=== PATIENT | male | born 1970 | race Caucasian/White ===

== ENCOUNTER 2019-10-23 11:14 | Inpatient (IN) | payer OTHER, SELFPAY ==
--- NOTE | 2019-10-23 11:40 | RAD ---
EXAM: Single view of the chest HISTORY: Chest pain COMPARISON: 10/02/2019 FINDINGS: Single view of the chest shows a normal sized cardiomediastinal silhouette. There is no eliezer dence of consolidation, mass, or pleural effusion. The bones are unremarkable. IMPRESSION: No evidence of acute cardiopulmonary disease
[2019-10-23 11:49] LABS: INR-International Normal Ratio 1.3; PTT 30.4 sec (22.9-36.1); Prothrombin Time 15.9 sec (12.0-14.7)
[2019-10-23 11:52] LABS: Hemoglobin 14.3 g/dL (14.0-18.0); Mean Corpuscular HGB CONC 31.7 g/dL (32.0-36.0); Platelet Count 244 thou/uL (130-400); RBC Distribution Width 14.1 % (11.5-14.5); Red Blood Cell (RBC) Count 4.32 mill/uL (4.70-6.10)
[2019-10-23 12:10] LABS: Band 5 % (5-11); Eosinophils 1 % (0-10); Lymphocytes 10 % (21-51); MDiff Complete? YES; Macrocytosis SLIGHT = 6-15 cells (100X) (0-5/hpf); Monocytes 2 % (0-10); Neutrophil 82 % (42-75); Platelet Morphology Comment Appears Adequate
[2019-10-23 12:16] LABS: ALT (SGPT) 53 U/L (8-55); AST (SGOT) 136 U/L (5-34); Albumin 2.5 g/dL (3.5-5.0); Alkaline Phosphatase 404 U/L (40-110); Anion Gap 19 mmol/L (10-20); BUN (Urea Nitrogen) 6 mg/dL (8.9-20.6); CK (CPK) 20 U/L (30-200); Calc. Creatinine Clearance 0 mL/min (70-130); Calcium 8.1 mg/dL (7.8-10.44); Carbon Dioxide 26 mmol/L (22-29); Chloride 84 mmol/L (98-107); Estimated GFR-MDRD Greater than 90; Globulin 3.3 g/dL (2.4-3.5); Glucose 94 mg/dL (70-105); Potassium 3.6 mmol/L (3.5-5.1); Protein, Total 5.8 g/dL (6.0-8.3); Sodium 125 mmol/L (136-145)
[2019-10-23] MEDS ORDERED: Cefepime 2 GM VIAL ONE (12:20)
[2019-10-23] MEDS ORDERED: Sodium Chloride 0.9% 100 ML ONE (12:20)
[2019-10-23 12:24] LABS: Acetaminophen Less than 6.0 mcg/mL (10.0-30.0); Alcohol Less than 10 mg/dL (Less than 10); Salicylate Less than 8.0 mg/dL (15.0-30.0)
[2019-10-23] MEDS ORDERED: Vancomycin 1 GM/200 ML BAG ONE (12:42)
[2019-10-23 13:27] LABS: Bilirubin 4+ (Negative); Blood, Urine 1+ (Negative); Clarity Turbid (Clear); Glucose, Urine (Dipstick) Normal (Negative); Ketone, Urine 60 mg/dL (Negative); Leukocyte Negative Leu/uL (Negative); Nitrite Negative (Negative); Protein, Urine (Dipstick) 50 mg/dL (Neg-Trace); Specific Gravity, Urine 1.026 (1.002-1.036); Urobilinogen Greater than 12 mg/dL (Less than 2)
[2019-10-23 13:39] LABS: Amphetamine Not Detected (NotDetected); Barbiturates Screen Not Detected (NotDetected); Benzodiazepine Screen Detected (NotDetected); Cocaine Metabolite Screen Not Detected (NotDetected); Medtox Control Line Valid? VALID (VALID); Medtox Reader # READER 1; Methadone Not Detected (NotDetected); Methamphetamine Not Detected (NotDetected); Opiate Screen Not Detected (NotDetected); Oxycodone Screen Not Detected (NotDetected); Phencyclidine (PCP) Not Detected (NotDetected); THC/Cannabinoid Screen Not Detected (NotDetected); Tricyclic Screen Not Detected (NotDetected)
[2019-10-23 13:40] LABS: Bacteria/HPF None Seen HPF (None Seen); Mucous/LPF 2+ LPF (<2+)
[2019-10-23 13:41] LABS: Renal Epithelial 0-3 HPF (None Seen); Squamous Epithelial 0-3 HPF (0-3)
[2019-10-23] MEDS ORDERED: Iopamidol-370 76% 500 ML 1 ML ONE (13:52)
[2019-10-23 14:55] LABS: BF Color Yellow; Body Fluid Source Ascites Body Fluid; Clarity Hazy (Clear)
[2019-10-23 14:56] LABS: BF RBC Count - Manual 107 /cu.mm; BF WBC/Nonhematics Ct.-Manual 164 /cu.mm; Tube # 3
[2019-10-23 15:03] LABS: BF Segmented Neutrophils 49 %; Cell Count Non Hematic 46 %; Lymphocytes 5 %
[2019-10-23] MEDS ORDERED: Senokot S 8.6-50 MG TAB PO PRN (16:29)
[2019-10-23] MEDS ORDERED: Ondansetron ODT 4 MG TAB PO PRN (16:29)
[2019-10-23] MEDS ORDERED: Ondansetron PF 4 MG/2 ML Vial IVP PRN (16:29)
[2019-10-23] MEDS ORDERED: Calcium Carbonate 500 MG ChewTAB PO PRN (16:29)
[2019-10-23] MEDS ORDERED: Lorazepam 1 MG TAB PO PRN (16:35)
[2019-10-23] MEDS ORDERED: traMADol HCl 50 MG TAB PO PRN (16:35)
[2019-10-23] MEDS ORDERED: cloNIDine 0.1 MG TAB PO PRN ×2 (16:35→16:37)
[2019-10-23] MEDS ORDERED: Thiamine 100 MG TAB PO SCH (16:45)
--- NOTE | 2019-10-23 17:10 | HP ---
PRIMARY CARE PHYSICIAN: None. PRIMARY DRY KILN FEEDER: None. CHIEF COMPLAINT: Abdominal distention and pain of 2 weeks duration. HISTORY OF PRESENT ILLNESS: The patient is a 49-year-old male with chronic alcohol abuse, presented to the emergency room with above complaints. Three weeks ago, the patient was admitted to this facility with alcohol withdrawal seizures. His bilirubin at that time was 10.1 with AST of 370, ALT of 88, and alkaline phosphatase of 363. Later on, his mentation improved. He has signed against medical advice next morning. Over the last 2 to 3 weeks, the patient noticed gradual worsening abdominal distention along with pain. The pain is mainly in the lower quadrant. He felt nauseous, however, denies any vomiting. He also noticed worsening yellow discoloration of his skin. He denies any fever or chills. He continues to drink alcohol, however, is trying to slow down. He denies any history of cirrhosis in the past. No diarrhea or previous GI workup reported. In the emergency room, his initial vital signs showed temperature 97.5 with respirations 20, pulse rate of 121 with a blood pressure of 106/83 with O2 saturation 97% on room air. His bilirubin this time was 14.0 with AST of 136, ALT of 53, alkaline phosphatase 404. He underwent paracentesis in the emergency room. He received vancomycin and cefepime along with IV fluid in the emergency room. PAST MEDICAL HISTORY: 1. Chronic alcohol abuse. 2. Recent hospitalization for alcohol withdrawal seizures. PAST SURGICAL HISTORY: Reviewed with the patient and none. The patient had paracentesis today. CURRENT HOME MEDICATIONS: The patient is currently on multivitamin along with magnesium. FAMILY HISTORY: Negative for GI malignancy. SOCIAL HISTORY: The patient continues to abuse alcohol up to 2 to 3 drinks on a daily basis. He also smokes up to half pack a day. 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 REVIEW OF SYSTEMS: All other review of systems was reviewed and were found negative. PHYSICAL EXAMINATION: VITAL SIGNS: As discussed above. GENERAL: A 49-year-old male in no apparent distress. There are fine generalized tremors noted. HEENT: Head, atraumatic and normocephalic. Sclerae icteric. Moist mucous membranes. No oral lesion. NECK: Supple. No JVD appreciated. No carotid bruit. LUNGS: Show diminished air entry at bilateral bases. HEART: S1, S2 present. Tachycardic. No rubs or gallops. ABDOMEN: Distended, soft, mild tenderness in the lower quadrant. No rebound or guarding. No costovertebral angle tenderness. EXTREMITIES: There is 2 to 3+ edema in bilateral lower extremity. No calf tenderness. SKIN: Jaundiced. LYMPH NODES: No palpable lymph nodes in the neck. PERIPHERAL VASCULAR: Radial pulses palpable bilaterally. MUSCULOSKELETAL: No joint swelling, tenderness. NEUROLOGIC: Grossly nonfocal with fine tremors in the bilateral hands as discussed above. LAB FINDINGS: CBC showed WBC 20, with hemoglobin 14.3, hematocrit 45, platelet count 244. PT of 15.9 with INR 1.3, PTT 30.4. Chemistry showed sodium 125, potassium 3.6, chloride 84, bicarb 26, BUN 6, creatinine 0.71, total bilirubin 14. Urinalysis showed 4 to 6 wbc's without any bacteria. Ascitic fluid showed WBC of 164 with 49% neutrophils. Urine drug screen was positive for benzodiazepines. Plasma alcohol was less than 10. Ascitic fluid Gram stain was negative for bacteria. Chest x-ray by my review was negative for infiltrate. EKG by my review showed sinus tachycardia. IMPRESSION: 1. Volume overload/symptomatic ascites, status post paracentesis. 2. Abnormal LFTs, most likely secondary to alcoholic hepatitis with possible cirrhosis. 3. Hyponatremia secondary to volume overload. 4. Ongoing alcohol abuse. 5. Tobacco dependence. 6. Macrocytosis secondary to alcohol abuse. 7. Hypoalbuminemia secondary to suspected cirrhosis. PLAN: The patient received empiric antibiotics in the emergency room. His Gram stain is negative. We will hold antibiotics for now. Consult Gastroenterology. His MELD score is 19. His discriminant function for alcoholic hepatitis is around 32. We will discuss with GI if he will benefit from steroids. Blood cultures have been sent. We will start him on albumin. We will add fluid restriction. We will recheck labs in a.m. We will check hepatitis C antibody and hepatitis B surface antigen. We will start low-dose diuretics. The patient understands the above plan of care. Job ID: [id number]
[2019-10-23 18:00] VITALS: BMI 25.7
[2019-10-23] MEDS: Spironolactone 25 MG TAB PO SCH (18:10)
[2019-10-23 19:16] LABS: CRP (Inflammatory) 8.98 mg/dL (= or < 0.5); Magnesium 1.3 mg/dL (1.6-2.6)
[2019-10-23 19:26] LABS: Phosphorus 1.8 mg/dL (2.3-4.7)
[2019-10-23 19:36] LABS: HBSAg Index 0.16 S/CO (0-0.99); Hep B Surf Ag Non-Reactive S/CO (NonReactive); Hep C IgG Ab Non-Reactive (NonReactive); Hep C Index 0.13 S/CO (0-0.79)
[2019-10-23] MEDS ORDERED: K-Phos Neutral 250 MG TAB PO SCH (20:00)
[2019-10-23] MEDS ORDERED: Magnesium Sulfate 4 GM in Sodium Chloride 0.9% 250 ML 250 ML IVPB SCH (20:00)
[2019-10-23] MEDS ORDERED: PHOS-NAK 1 PKT PACK PO SCH (20:00)
--- NOTE | 2019-10-23 20:50 | CT ---
CT Abdomen Pelvis W WO con History: Ascites Comparison: None. Findings: Moderate left and mild right layering pleural effusions. No significant pericardial fluid. No lower lobe pneumonia. There is very severe hepatic steatosis. The hepatic veins are patent as well as the portal vein. Subm ucosal edema throughout the ascending and transverse colon as well as some mucosal edema throughout the small bowel are all felt to be congestive in nature. No hydronephrosis. Aortoiliac contour is nonaneurysmal. Moderate airspace and fluid throughout the superficial and deep soft tissues. No acute osseous abnorm ality. No retroperitoneal periaortic adenopathy. Adrenal glands are unremarkable. Normal conventional hepatic arterial branching. No accessory branch. The hepatic arterial vasculature is widely patent. Mild atrophy of the pancreatic head. No abnormal papillary enhancement. Gallbladder is unremarkable. No intrahepatic or extrahepatic biliary dilatation or dilatation of the pancreatic duct. Small esophageal varices. No significant splenomegaly. Splenic artery and vein are patent. The inferior vena cava is patent. The femoral veins are patent. Impression: 1. Patent hepatic and portal veins. 2. Markedly severe hepatic steatosis without arterial enhancing mass. 3. Evidence of acute hepatic failure including moderate volume ascites, moderate left and small right pleural effusion, third spacing of fluid within the interstitial soft tissues, as well as congestive changes of the colon and small bowel.
[2019-10-23] MEDS: Propranolol 10 MG TAB PO SCH (21:21)
[2019-10-23] MEDS ORDERED: Albumin 25% 25 GM/100 ML BOT IVPB SCH (22:00)
--- NOTE | 2019-10-23 23:06 | CON ---
DATE OF CONSULTATION: 09/26/2019 REQUESTING PHYSICIAN: Dr. South. REASON FOR CONSULTATION: Jaundice and ascites. HISTORY OF PRESENT ILLNESS: Cooper East is a 49-year-old man with a history of long-term ongoing tobacco and alcohol abuse and remote drug abuse. He says that he basically would have a bottle of vodka almost every day and this has been his pattern for a long time, at least until the past couple of weeks. He has had a few episodes of alcohol withdrawal seizures in the past, but he never had any issues with the liver that he was aware of. He was here a few weeks ago in the emergency department after having fallen. His bilirubin was noted to be 10.0 at that time. He left the ER against medical advice, but over the past couple of weeks he reports new symptoms of fluid retention. He says that the onset was fairly rapid and he started developing progressive abdominal distention, scrotal edema and lower extremity edema started to have some shortness of breath with this. There has been some nausea. He has had a few episodes of nonbloody emesis. There has been no hematemesis, no melena or hematochezia or change in bowel habits. There has been no fever. Many days his appetite is okay, but some days he does not have much appetite at all. He never noticed he was becoming jaundiced until it was pointed out to him by physicians. The discomfort from the fluid retention became too much and so he presented to the emergency department today. In the ER, he underwent paracentesis of 5.5 L. He is feeling much better at present. He received IV cefepime in the ER as well as he was found to have leukocytosis as well as well as tachycardia. He has been admitted to the hospital for further workup and treatment. His bilirubin has climbed up further to 14.0. He has never had any abdominal surgeries or any prior endoscopy. There is no known family history of liver disease. PAST MEDICAL HISTORY: 1. Chronic alcohol abuse. 2. Tobacco abuse. 3. Alcohol withdrawal seizures. PAST SURGICAL HISTORY: None. ALLERGIES: NO KNOWN DRUG ALLERGIES. OUTPATIENT MEDICATIONS: Daily multivitamin. FAMILY HISTORY: Negative for GI malignancy. Negative for liver disease that he is aware of. SOCIAL HISTORY: The patient has a long history of alcohol abuse with a bottle of vodka basically daily, the past few weeks he has slowed down a little bit. He smokes up to half a pack per day. He abused methamphetamine in the past, not currently. REVIEW OF SYSTEMS: Full review of systems including constitutional, head, eyes, ears, nose, throat, GI, , cardiovascular, respiratory, musculoskeletal, neurologic systems is negative except as noted in the HPI. PHYSICAL EXAMINATION: VITAL SIGNS: Temperature 97.6, pulse 106, blood pressure 100/68, 97% oxygen saturation on room air. GENERAL: Jaundiced, lying in bed comfortably, in no distress. MENTAL: He is alert and fully oriented. Pleasant, conversational. He can give a detailed coherent history. SKIN: He is jaundiced. No rashes were palpable. EYES: He has scleral icterus. Extraocular movements intact. ENT: Mucous membranes moist. No oral lesions. NECK: No submandibular or supraclavicular lymphadenopathy. Thyroid nontender to palpation. HEART: Regular rate and rhythm. He is borderline tachycardic. No murmur appreciated. LUNGS: Clear to auscultation bilaterally. ABDOMEN: Distended, but soft. Dullness to percussion in the flanks. Nontender to palpation. Bowel sounds are present. No guarding, rebound or tenderness. EXTREMITIES: 2 to 3+ bilateral lower extremity edema. NEUROLOGIC: Cranial nerves 2-12 intact bilaterally. No focal deficits. No asterixis. VESSELS: Radial pulses 2+ bilaterally. LABORATORY STUDIES: WBC is 20.0, hemoglobin 14.3, platelets 244. INR 1.3. Sodium 125, potassium 3.6, BUN 6, creatinine 0.71, glucose 94, lactic acid 1.8, calcium 8.1, total bilirubin 14.0, alkaline phosphatase 404, AST 136, ALT 53, CK only 20. Troponin negative. Ammonia only 33, albumin 2.5. Lipase only 20. TSH 1.44. Urinalysis shows 4 to 6 wbcs. Urine drug screen was positive for benzodiazepines. Acetaminophen, salicylates and alcohol are negative. Paracentesis fluid showed 164 WBCs with 49% neutrophils, which did not meet criteria for SBP. Ascites fluid culture and blood cultures are pending. Viral hepatitis serologies for B and C are pending. IMAGING STUDIES: Chest x-ray shows no acute cardiopulmonary disease. ASSESSMENT/PLAN: 1. Acute alcoholic hepatitis. 2. Jaundice, secondary to acute alcoholic hepatitis. 3. Ascites, secondary to acute alcoholic hepatitis. 4. Leukocytosis. The patient's presentation is consistent with acute alcoholic hepatitis. It is unclear whether he has cirrhosis. His platelet count is normal. INR is mildly elevated. I agree with viral hepatitis serologies and will also order further liver lab workup including autoimmune markers, iron studies, ceruloplasmin, etc., to exclude other sources of liver disease. I do expect this is all secondary to alcohol. His discriminant function calculates out to 27, MELD score to 16. So, I would not recommend steroids. Labs will need to be trended daily the next couple of days, and if the discriminant function is climbing and there is no evidence of infection, he might benefit from steroids at that point. Aside from the laboratory studies, we need to get imaging of the liver, as well as the portal system to rule out portal vein thrombosis as a contributor to the onset of ascites. We will get a CT of the abdomen and pelvis with contrast. His renal function is good. I agree with the initiation of diuretics. The patient also needs to be on a low-sodium diet. Perhaps most importantly, I emphasized with him very strongly that he needs to completely abstain from all alcohol going forward. If he does recover from this episode and does not have significant liver fibrosis, then his long-term outlook should be quite good as long as he does not start drinking again. Thank you for the consultation. We will follow up results of imaging and labs. GI can follow along. Please call anytime with questions or concerns. Job ID: [id number]
[2019-10-24 07:11] LABS: Hemoglobin 12.3 g/dL (14.0-18.0); Mean Corpuscular Hemoglobin 33.6 pg (27.0-31.0); Mean Platelet Volume 7.4 fL (7.4-10.4); Platelet Count 160 thou/uL (130-400); RBC Distribution Width 14.3 % (11.5-14.5); Red Blood Cell (RBC) Count 3.66 mill/uL (4.70-6.10); White Blood Cell (WBC) Count 14.4 thou/uL (4.8-10.8)
[2019-10-24 07:30] LABS: ALT (SGPT) 39 U/L (8-55); AST (SGOT) 96 U/L (5-34); Albumin 2.1 g/dL (3.5-5.0); Alkaline Phosphatase 300 U/L (40-110); Bilirubin, Direct 7.4 mg/dL (0.1-0.3); Protein, Total 4.9 g/dL (6.0-8.3)
[2019-10-24 07:35] LABS: Anion Gap 12 mmol/L (10-20); BUN (Urea Nitrogen) 4 mg/dL (8.9-20.6); Calc. Creatinine Clearance 169 mL/min (70-130); Calcium 7.3 mg/dL (7.8-10.44); Carbon Dioxide 27 mmol/L (22-29); Chloride 91 mmol/L (98-107); Estimated GFR-MDRD Greater than 90; Glucose 95 mg/dL (70-105); Iron 56 ug/dL (65-175); Iron Binding Capacity, Total 66 mcg/dL (261-462); Magnesium 2.2 mg/dL (1.6-2.6); Phosphorus 2.2 mg/dL (2.3-4.7); Potassium 3.3 mmol/L (3.5-5.1); Sodium 127 mmol/L (136-145)
[2019-10-24] MEDS ORDERED: PHOS-NAK 1 PKT PACK PO SCH (08:00)
[2019-10-24 08:19] LABS: Band 4 % (5-11); Eosinophils 1 % (0-10); Lymphocytes 11 % (21-51); MDiff Complete? YES; Macrocytosis SLIGHT = 6-15 cells (100X) (0-5/hpf); Metamyelocyte 2 % (0-0); Monocytes 7 % (0-10); Neutrophil 73 % (42-75); Platelet Morphology Comment Appears Adequate; Target Cells SLIGHT = 2-5 cells (100X) (0-1/hpf)
[2019-10-24] MEDS: Cyanocobalamin (Vitamin B-12) 1,000 MCG TAB PO SCH (08:36)
[2019-10-24] MEDS: Spironolactone 25 MG TAB PO SCH ×2 (08:36→16:21)
[2019-10-24] MEDS: Furosemide 40 MG TAB PO SCH ×2 (08:36→12:59)
[2019-10-24] MEDS: Multivit, Therapeutic 1 TAB PO SCH (08:36)
[2019-10-24] MEDS: Thiamine 100 MG TAB PO SCH (08:36)
[2019-10-24] MEDS: Folic Acid 1 MG TAB PO SCH (08:36)
[2019-10-24] MEDS: Propranolol 10 MG TAB PO SCH ×3 (08:37→20:21)
[2019-10-24] MEDS: K-Phos Neutral 250 MG TAB PO SCH ×3 (08:37→16:20)
[2019-10-24] MEDS: Albumin 25% 25 GM/100 ML BOT IVPB SCH ×2 (09:52→18:09)
[2019-10-24] MEDS: PHOS-NAK 1 PKT PACK PO SCH ×2 (12:59→16:20)
--- NOTE | 2019-10-24 18:03 | PRG ---
DATE OF SERVICE: 10/24/2019 SUBJECTIVE: The patient is alert, lucid, and oriented. He complains of having fullness in his abdomen from ascites. There is still small volume leakage from the paracentesis site in the right lower quadrant. No nausea or vomiting. He is consuming from 1/2 to 3/4 portions of his tray. OBJECTIVE: VITAL SIGNS: Temperature is 97.5, blood pressure 98/67, pulse of 83. GENERAL: He is alert and oriented. In no distress. HEENT: Shows anicteric sclerae. Oropharynx is clear and moist. CV: Shows normal S1, S2. Regular rate and rhythm. CHEST: Shows breath sounds. ABDOMEN: Protuberant from ascites. There is a Band-Aid over the paracentesis site in the right abdomen. There is no tenderness. Organomegaly difficult to assess secondary to size. EXTREMITIES: Show 2+ edema. LABORATORY DATA: WBCs 14.4, hemoglobin 12.3, and platelet count of 160. Sodium 127, potassium , chloride 91, CO2 of 27, creatinine 0.65, BUN 4, calcium 7.3, phosphorus 2.2, albumin 1.8, magnesium 2.2. Ferritin is 1607. Direct bilirubin is 7.4, AST of 96, ALT of 39, alkaline phosphatase 300. Peritoneal fluid culture, no growth at [address] showed patent portal vein and hepatic vein. Ascites. Fatty liver without any mass. ASSESSMENT: 1. Acute alcoholic hepatitis, discriminant function 27. MELD score is 14 with a 90-day mortality rate of 11%. The patient is alert and lucid. CT does show ascites without any portal vein thrombosis. Clinically stable, perhaps slight improvement in laboratory parameters with decreasing bilirubin. 2. Volume retention with edema and ascites, no evidence of spontaneous bacterial peritonitis. RECOMMENDATIONS: 1. Continue furosemide 40 mg b.i.d. 2. Increase spironolactone to 50 mg b.i.d. 3. Salt restriction. 4. Discontinue lactulose as there is no hepatic encephalopathy. 5. Importance of alcohol abstinence re-emphasized. 6. No recommendation for corticosteroid therapy. 7. We will follow. Job ID: [id number] [facility]
--- NOTE | 2019-10-24 23:15 | PDOC.HOSPP ---
- Subjective Encounter Date: 10/24/19 Encounter Time: 16:00 Subjective: Patient seen and examined for Symptomatic ascites/Cirrhosis. Feels gen weak. No confusion. No new complaints. No overnight events - Objective Vital Signs & Weight: Vital Signs (12 hours) Temp Pulse Resp BP Pulse Ox 10/24/19 20:00 96 10/24/19 19:06 98.2 F 94 18 94/60 96 10/24/19 16:05 97.5 F L 90 18 95/67 97 Weight Weight 189 lb 15.91 oz I&O: 10/23/19 10/24/19 10/25/19 06:59 06:59 06:59 Intake Total 1200 Output Total 1800 Balance -600 Result Diagrams: 10/25/19 06:08 10/25/19 06:08 Additional Labs: Laboratory Tests 10/24/19 10/24/19 10/24/19 06:42 06:42 06:42 Sodium 127 L Potassium 3.3 L Phosphorus 2.2 L Magnesium 2.2 Ferritin 1607.76 H Total Bilirubin 10.0 H Radiology Reviewed by me: Yes (CT abd - reviewed) Hospitalist ROS - Review of Systems Respiratory: denies: cough, dry, shortness of breath, hemoptysis, SOB with excertion, pleuritic pain, sputum, wheezing, other Cardiovascular: denies: chest pain, palpitations, orthopnea, paroxysmal noc. dyspnea, edema, light headedness, other - Medication Medications: Active Medications Generic Name Dose Route Start Last Admin Trade Name Freq PRN Reason Stop Dose Admin Albumin Human 25 gm 10/24/19 10:00 10/24/19 18:09 Albumin 25% IVPB 10/25/19 02:01 25 gm 0200,1000,1800 LISA Administration Cyanocobalamin 1,000 mcg 10/24/19 09:00 10/24/19 08:36 Vitamin B-12 PO 1,000 mcg DAILY LISA Administration Folic Acid 1 mg 10/24/19 09:00 10/24/19 08:36 Folvite PO 1 mg DAILY LISA Administration Furosemide 40 mg 10/24/19 09:00 10/24/19 12:59 Lasix PO 40 mg 0900,1400 LISA Administration Miscellaneous Medication 1 pkt 10/24/19 12:00 10/24/19 16:20 Phos-Nak PO 1 pkt TID-WM LISA Administration Multivitamins 1 tab 10/24/19 09:00 10/24/19 08:36 Theragran PO 1 tab DAILY LISA Administration Phosphorus 500 mg 10/24/19 08:00 10/24/19 16:20 Kphos Neutral PO 500 mg TID-WM LISA Administration Propranolol HCl 10 mg 10/23/19 21:00 10/24/19 20:21 Inderal PO Not Given TID LISA Spironolactone 50 mg 10/24/19 17:00 10/24/19 16:21 Aldactone PO 50 mg BID-WM LISA Administration Thiamine HCl 100 mg 10/24/19 09:00 10/24/19 08:36 Thiamine PO 100 mg DAILY LISA Administration - Exam General Appearance: NAD Heart: RRR, no gallops, no rubs, normal peripheral pulses Respiratory: no wheezes, no ronchi, normal chest expansion, no tachypnea Gastrointestinal: soft, no guarding, no rigidity, distended Extremities: no cyanosis, no clubbing Neurological: no new deficit Psychiatric: normal affect, A&O x 3 Hosp A/P - Plan DVT proph w/SCDs 1. Volume overload/symptomatic ascites, status post paracentesis. 2. Abnormal LFTs, most likely secondary to alcoholic hepatitis with possible cirrhosis. 3. Hyponatremia/hypokalemia/hypomagnsemia 4. Ongoing alcohol abuse. 5. Tobacco dependence. 6. Macrocytosis secondary to alcohol abuse. 7. Hypoalbuminemia secondary to suspected cirrhosis. PLAN: GI input appreciated Cont Lasix Aldactone increased LFTs improving Replace electrolytes s/p IV albumin
[2019-10-25] MEDS: Albumin 25% 25 GM/100 ML BOT IVPB SCH (01:02)
[2019-10-25 06:34] LABS: #Basophils 0.1 thou/uL (0.0-0.2); #Eosinphils 0.2 thou/uL (0.0-0.7); #Lymphocytes 1.9 thou/uL (1.20-3.40); #Monocytes 0.9 thou/uL (0.11-0.59); %Basophils 0.5 % (0.0-1.0); %Eosinophils 1.8 % (0.0-10.0); %Lymphocytes 16.9 % (21.0-51.0); %Monocytes 8.1 % (0.0-10.0); %Neutrophils 72.7 % (42.0-75.0); Hemoglobin 11.9 g/dL (14.0-18.0); Mean Corpuscular HGB CONC 33.6 g/dL (32.0-36.0); Mean Corpuscular Hemoglobin 34.7 pg (27.0-31.0); Mean Platelet Volume 7.1 fL (7.4-10.4); Platelet Count 147 thou/uL (130-400); Red Blood Cell (RBC) Count 3.42 mill/uL (4.70-6.10); White Blood Cell (WBC) Count 10.9 thou/uL (4.8-10.8)
[2019-10-25 06:55] LABS: ALT (SGPT) 30 U/L (8-55); AST (SGOT) 79 U/L (5-34); Albumin 2.9 g/dL (3.5-5.0); Alkaline Phosphatase 253 U/L (40-110); Bilirubin, Direct 7.3 mg/dL (0.1-0.3); Bilirubin, Total 9.5 mg/dL (0.2-1.2); Protein, Total 5.1 g/dL (6.0-8.3)
[2019-10-25 06:56] LABS: Anion Gap 10 mmol/L (10-20); BUN (Urea Nitrogen) Less than 4 mg/dL (8.9-20.6); Calc. Creatinine Clearance 190 mL/min (70-130); Calcium 7.7 mg/dL (7.8-10.44); Carbon Dioxide 35 mmol/L (22-29); Chloride 90 mmol/L (98-107); Estimated GFR-MDRD Greater than 90; Glucose 88 mg/dL (70-105); Magnesium 1.5 mg/dL (1.6-2.6); Phosphorus 2.3 mg/dL (2.3-4.7); Sodium 132 mmol/L (136-145)
[2019-10-25 07:00] LABS: Potassium 2.6 mmol/L (3.5-5.1)
[2019-10-25] MEDS ORDERED: Potassium Chloride 20 MEQ TAB PO SCH (08:00)
[2019-10-25] MEDS: Folic Acid 1 MG TAB PO SCH (08:20)
[2019-10-25] MEDS: Furosemide 40 MG TAB PO SCH ×2 (08:20→14:34)
[2019-10-25] MEDS: Multivit, Therapeutic 1 TAB PO SCH (08:20)
[2019-10-25] MEDS: K-Phos Neutral 250 MG TAB PO SCH ×3 (08:20→17:22)
[2019-10-25] MEDS: Thiamine 100 MG TAB PO SCH (08:20)
[2019-10-25] MEDS: Cyanocobalamin (Vitamin B-12) 1,000 MCG TAB PO SCH (08:20)
[2019-10-25] MEDS: PHOS-NAK 1 PKT PACK PO SCH ×3 (08:24→17:22)
[2019-10-25] MEDS: Spironolactone 25 MG TAB PO SCH ×2 (08:24→17:22)
[2019-10-25] MEDS: Propranolol 10 MG TAB PO SCH ×3 (08:24→19:57)
[2019-10-25] MEDS ORDERED: Magnesium Sulfate 4 GM in Sodium Chloride 0.9% 250 ML 250 ML IVPB SCH (09:15)
[2019-10-25] MEDS ORDERED: Phytonadione 10 MG/ML AMP PO SCH (10:15)
[2019-10-25] MEDS: Potassium Chloride 20 MEQ TAB PO SCH ×2 (11:53→17:22)
[2019-10-25 15:58] LABS: ANA Symphony (Qualitative) Negative (Negative); ANA Symphony (Quantitative) 0.2 Ratio (< 0.7 Negative); EliA Vaculitis New Method **** NEW METHOD ****; Mitochondrial Ab 0.9 U/mL (<4 Negative); dsDNA IgG Antibody 0.6 IU/mL (<10 Negative)
--- NOTE | 2019-10-25 22:01 | PRG ---
DATE OF SERVICE: 10/25/2019 SUBJECTIVE: Mr. East notes that he is feeling a little bit better. His scrotal edema is better. His diuretics were increased yesterday. Dr. Loaiza. He is eating quite well. MEDICATIONS: 1. Clonidine. 2. B12. 3. Folic acid. 4. Lasix 40 b.i.d. 5. Ativan p.r.n. 6. Thiamine. 7. Multivitamin. 8. Phosphorus t.i.d. 9. Inderal. 10. Aldactone 50 b.i.d. PHYSICAL EXAMINATION: VITAL SIGNS: He was 189 on the . He has not been weighed since. Temperature is 98.2, pulse is 90 to 100, blood pressure 114/76. He has been afebrile. ABDOMEN: Soft, nontender. There is no shifting dullness, fluid wave. There is a colostomy bag over his drainage site from his paracentesis. Right abdomen has clear yellow fluid. LUNGS: Clear. HEART: Regular without clicks, rubs or murmurs. EXTREMITIES: Reveal edema, left greater than right. LABORATORY DATA: White count is 10.9 down from 20,000 on admission, hemoglobin 11.9, platelet count 147. Sodium 132, potassium 2.6, BUN and creatinine are 4 and 0.58. Bilirubin is 9.5, down from 14 on admission. AST and ALT are 79 and 30 down from 136 and 53, alkaline phosphatase is 253, albumin is 2.9. Tap showed white count of 1.64. Toxicology negative for alcohol, drugs. Autoimmune workup negative. Hepatitis B and C negative. Iron stores; ferritin 1607, TIBC 66, and iron 56. ASSESSMENT: 1. Alcoholic hepatitis, improving. 2. Elevated ferritin, acute phase reactant. No signs of hemochromatosis, viral hepatitis or autoimmune hepatitis. 3. Anasarca and edema secondary to alcoholic hepatitis/liver disease, possible cirrhosis. RECOMMENDATIONS: 1. Daily weights. 2. Low-salt diet. He needs a dietitian to see him about that. 3. Continue high-protein diet, multivitamin, thiamine and folate. 4. I suspect he will be here over the weekend. We can decide what his diuretic requirements will be going home. We do not want to over diurese and he will get a hepatorenal syndrome. 5. Alcohol avoidance. 6. We will increase Aldactone to 100 mg once daily that will help his potassium. Job ID: [id number]
[2019-10-26 05:40] LABS: #Basophils 0.1 thou/uL (0.0-0.2); #Eosinphils 0.3 thou/uL (0.0-0.7); #Lymphocytes 2.5 thou/uL (1.20-3.40); #Monocytes 1.2 thou/uL (0.11-0.59); #Neutrophils 8.5 thou/uL (1.40-6.50); %Basophils 0.8 % (0.0-1.0); %Eosinophils 2.2 % (0.0-10.0); %Lymphocytes 20.2 % (21.0-51.0); %Monocytes 9.2 % (0.0-10.0); %Neutrophils 67.6 % (42.0-75.0); Hemoglobin 12.9 g/dL (14.0-18.0); Mean Corpuscular HGB CONC 32.4 g/dL (32.0-36.0); Mean Corpuscular Hemoglobin 33.5 pg (27.0-31.0); Mean Platelet Volume 7.3 fL (7.4-10.4); Platelet Count 160 thou/uL (130-400); RBC Distribution Width 14.6 % (11.5-14.5); Red Blood Cell (RBC) Count 3.85 mill/uL (4.70-6.10); White Blood Cell (WBC) Count 12.5 thou/uL (4.8-10.8)
[2019-10-26 06:02] LABS: ALT (SGPT) 36 U/L (8-55); AST (SGOT) 93 U/L (5-34); Albumin 2.6 g/dL (3.5-5.0); Alkaline Phosphatase 270 U/L (40-110); Bilirubin, Direct 7.1 mg/dL (0.1-0.3); Bilirubin, Total 9.1 mg/dL (0.2-1.2); Protein, Total 5.1 g/dL (6.0-8.3)
[2019-10-26 06:03] LABS: Anion Gap 10 mmol/L (10-20); BUN (Urea Nitrogen) 4 mg/dL (8.9-20.6); Calc. Creatinine Clearance 150 mL/min (70-130); Calcium 7.5 mg/dL (7.8-10.44); Carbon Dioxide 33 mmol/L (22-29); Chloride 91 mmol/L (98-107); Estimated GFR-MDRD Greater than 90; Glucose 98 mg/dL (70-105); Magnesium 1.7 mg/dL (1.6-2.6); Phosphorus 2.6 mg/dL (2.3-4.7); Potassium 3.2 mmol/L (3.5-5.1); Sodium 131 mmol/L (136-145)
[2019-10-26] MEDS ORDERED: Magnesium 2 GM/50 ML 2 GM in Premix Bag 1 BAG IVPB SCH (08:30)
[2019-10-26] MEDS: Multivit, Therapeutic 1 TAB PO SCH (08:40)
[2019-10-26] MEDS: Cyanocobalamin (Vitamin B-12) 1,000 MCG TAB PO SCH (08:40)
[2019-10-26] MEDS: Folic Acid 1 MG TAB PO SCH (08:40)
[2019-10-26] MEDS: K-Phos Neutral 250 MG TAB PO SCH ×3 (08:40→18:05)
[2019-10-26] MEDS: PHOS-NAK 1 PKT PACK PO SCH ×2 (08:40→12:04)
[2019-10-26] MEDS: Thiamine 100 MG TAB PO SCH (08:41)
[2019-10-26] MEDS: Propranolol 10 MG TAB PO SCH ×3 (08:41→19:49)
[2019-10-26] MEDS: Spironolactone 100 MG TAB PO SCH ×2 (08:42→18:05)
[2019-10-26] MEDS: Furosemide 40 MG TAB PO SCH ×2 (08:42→15:35)
--- NOTE | 2019-10-26 10:18 | PDOC.HOSPP ---
- Subjective Encounter Date: 10/25/19 Encounter Time: 17:00 Subjective: Patient seen and examined for hepatitis/ascites. No new complaints. No overnight events - Objective Vital Signs & Weight: Vital Signs (12 hours) Temp Pulse Resp BP Pulse Ox 10/26/19 07:09 98.3 F 96 20 98/67 96 Weight Weight 157 lb 11.2 oz I&O: 10/25/19 10/26/19 10/27/19 06:59 06:59 06:59 Intake Total 1860 1500 Output Total 3000 100 Balance -1140 1400 Result Diagrams: 10/26/19 05:15 10/26/19 05:15 Hospitalist ROS - Review of Systems Respiratory: denies: cough, dry, shortness of breath, hemoptysis, SOB with excertion, pleuritic pain, sputum, wheezing, other Cardiovascular: denies: chest pain, palpitations, orthopnea, paroxysmal noc. dyspnea, edema, light headedness, other - Medication Medications: Active Medications Generic Name Dose Route Start Last Admin Trade Name Myranda PRN Reason Stop Dose Admin Cyanocobalamin 1,000 mcg 10/24/19 09:00 10/26/19 08:40 Vitamin B-12 PO 1,000 mcg DAILY LISA Administration Folic Acid 1 mg 10/24/19 09:00 10/26/19 08:40 Folvite PO 1 mg DAILY LISA Administration Furosemide 40 mg 10/24/19 09:00 10/26/19 08:42 Lasix PO 40 mg 0900,1400 LISA Administration Miscellaneous Medication 1 pkt 10/24/19 12:00 10/26/19 08:40 Phos-Nak PO 1 pkt TID-WM LISA Administration Multivitamins 1 tab 10/24/19 09:00 10/26/19 08:40 Theragran PO 1 tab DAILY LISA Administration Phosphorus 500 mg 10/24/19 08:00 10/26/19 08:40 Kphos Neutral PO 500 mg TID-WM LISA Administration Propranolol HCl 10 mg 10/23/19 21:00 10/26/19 08:41 Inderal PO Not Given TID LISA Spironolactone 100 mg 10/25/19 21:39 10/26/19 08:42 Aldactone PO 100 mg BID-WM LISA Administration Thiamine HCl 100 mg 10/24/19 09:00 10/26/19 08:41 Thiamine PO 100 mg DAILY LISA Administration - Exam General Appearance: ill appearing Heart: RRR, no gallops Respiratory: no wheezes, no ronchi Gastrointestinal: soft, no guarding, no rigidity Extremities: no cyanosis Neurological: no new deficit Hosp A/P - Plan DVT proph w/SCDs 1. Volume overload/symptomatic ascites, status post paracentesis. 2. Abnormal LFTs, most likely secondary to alcoholic hepatitis with possible cirrhosis. 3. Hyponatremia/hypokalemia/hypomagnsemia 4. Ongoing alcohol abuse. 5. Tobacco dependence. 6. Macrocytosis secondary to alcohol abuse. 7. Hypoalbuminemia secondary to suspected cirrhosis. PLAN: Cont salt and fluid restriction Cont Lasix with Aldactone Replace electrolytes Cont other meds as above AM labs
[2019-10-26] MEDS: Potassium Chloride 20 MEQ TAB PO SCH ×2 (12:05→18:05)
--- NOTE | 2019-10-26 15:00 | PDOC.HOSPP ---
- Subjective Encounter Date: 10/26/19 Encounter Time: 14:15 Subjective: Patient seen and examined for Hepatitis/Ascites. Appetite improving. No Abd pain or nausea. No new complaints. No overnight events - Objective Vital Signs & Weight: Vital Signs (12 hours) Temp Pulse Resp BP Pulse Ox 10/26/19 11:22 98.0 F 94 20 105/73 97 10/26/19 07:09 98.3 F 96 20 98/67 96 Weight Weight 157 lb 11.2 oz I&O: 10/25/19 10/26/19 10/27/19 06:59 06:59 06:59 Intake Total 1860 1500 200 Output Total 3000 100 Balance -1140 1400 200 Result Diagrams: 10/26/19 05:15 10/26/19 05:15 Hospitalist ROS - Review of Systems Respiratory: denies: cough, dry, shortness of breath, hemoptysis, SOB with excertion, pleuritic pain, sputum, wheezing, other Cardiovascular: denies: chest pain, palpitations, orthopnea, paroxysmal noc. dyspnea, edema, light headedness, other - Medication Medications: Active Medications Generic Name Dose Route Start Last Admin Trade Name Freq PRN Reason Stop Dose Admin Cyanocobalamin 1,000 mcg 10/24/19 09:00 10/26/19 08:40 Vitamin B-12 PO 1,000 mcg DAILY LISA Administration Folic Acid 1 mg 10/24/19 09:00 10/26/19 08:40 Folvite PO 1 mg DAILY LISA Administration Furosemide 40 mg 10/24/19 09:00 10/26/19 08:42 Lasix PO 40 mg 0900,1400 LISA Administration Miscellaneous Medication 1 pkt 10/24/19 12:00 10/26/19 12:04 Phos-Nak PO 1 pkt TID-WM LISA Administration Multivitamins 1 tab 10/24/19 09:00 10/26/19 08:40 Theragran PO 1 tab DAILY LISA Administration Phosphorus 500 mg 10/24/19 08:00 10/26/19 12:04 Kphos Neutral PO 500 mg TID-WM LISA Administration Potassium Chloride 20 meq 10/26/19 12:00 10/26/19 12:05 K-Dur PO 10/26/19 17:01 20 meq TID-WM LISA Administration Propranolol HCl 10 mg 10/23/19 21:00 10/26/19 08:41 Inderal PO Not Given TID LISA Spironolactone 100 mg 10/25/19 21:39 10/26/19 08:42 Aldactone PO 100 mg BID-WM LISA Administration Thiamine HCl 100 mg 10/24/19 09:00 10/26/19 08:41 Thiamine PO 100 mg DAILY LISA Administration - Exam General Appearance: NAD Neck: supple, no JVD Heart: RRR, no gallops Respiratory: no wheezes, no rales Gastrointestinal: non-tender, no guarding, no rigidity Extremities: no cyanosis Extremities - other findings: edema improving Neurological: no new deficit Hosp A/P - Plan DVT proph w/SCDs 1. Anasarca/Volume overload/symptomatic ascites, s/pparacentesis. 2. Alcoholic hepatitis with possible cirrhosis. 3. Hyponatremia/hypokalemia/hypomagnesemia 4. Ongoing alcohol abuse. 5. Tobacco dependence. 6. Macrocytosis secondary to alcohol abuse. 7. Hypoalbuminemia secondary to suspected cirrhosis. PLAN: Cont salt and fluid restriction Cont Lasix Cont Aldactone - dose increased Replace Potassium and Mag AM labs Cont other meds as above
--- NOTE | 2019-10-26 18:17 | PRG ---
DATE OF SERVICE: 10/26/2019 SUBJECTIVE: Mr. East is resting in bed. He is eating without complaints. OBJECTIVE: VITAL SIGNS: Temperature is 98, pulse 94, blood pressure 105/73, weight is 157, he is down from 189 on admission. ABDOMEN: Nontender and nondistended. EXTREMITIES: Reveal trace edema in the legs. LABORATORY DATA: White count 12, hemoglobin 12, platelet count 160. Sodium 131, potassium 3.2, BUN and creatinine are 4 and 0.6. Bilirubin is 9, AST is 93, ALT is 30, alkaline phosphatase 270. ASSESSMENT: 1. Alcoholic hepatitis, slowly improving. 2. Anasarca, slowly improving. RECOMMENDATIONS: Continue ambulation, low-salt diet, diuresis. Monitor BMP daily and weight daily. We may need to back off on his diuretics a bit. Hopefully, he will be ready go home early next week. Job ID: [id number]
[2019-10-27 06:29] LABS: #Basophils 0.1 thou/uL (0.0-0.2); #Eosinphils 0.3 thou/uL (0.0-0.7); #Lymphocytes 3.1 thou/uL (1.20-3.40); #Monocytes 1.3 thou/uL (0.11-0.59); #Neutrophils 9.2 thou/uL (1.40-6.50); %Basophils 0.9 % (0.0-1.0); %Eosinophils 1.9 % (0.0-10.0); %Lymphocytes 22.3 % (21.0-51.0); %Monocytes 9.3 % (0.0-10.0); %Neutrophils 65.6 % (42.0-75.0); Mean Corpuscular HGB CONC 32.9 g/dL (32.0-36.0); Mean Corpuscular Hemoglobin 34.2 pg (27.0-31.0); Mean Platelet Volume 7.4 fL (7.4-10.4); Platelet Count 157 thou/uL (130-400); RBC Distribution Width 14.4 % (11.5-14.5); Red Blood Cell (RBC) Count 3.81 mill/uL (4.70-6.10); White Blood Cell (WBC) Count 14.1 thou/uL (4.8-10.8)
[2019-10-27 06:55] LABS: ALT (SGPT) 36 U/L (8-55); AST (SGOT) 95 U/L (5-34); Albumin 2.5 g/dL (3.5-5.0); Alkaline Phosphatase 272 U/L (40-110); Anion Gap 11 mmol/L (10-20); BUN (Urea Nitrogen) 6 mg/dL (8.9-20.6); Bilirubin, Total 8.5 mg/dL (0.2-1.2); Calc. Creatinine Clearance 158 mL/min (70-130); Calcium 7.9 mg/dL (7.8-10.44); Carbon Dioxide 27 mmol/L (22-29); Chloride 95 mmol/L (98-107); Estimated GFR-MDRD Greater than 90; Globulin 2.5 g/dL (2.4-3.5); Glucose 91 mg/dL (70-105); Magnesium 1.4 mg/dL (1.6-2.6); Potassium 3.9 mmol/L (3.5-5.1); Sodium 129 mmol/L (136-145)
[2019-10-27] MEDS: Multivit, Therapeutic 1 TAB PO SCH (07:49)
[2019-10-27] MEDS: Propranolol 10 MG TAB PO SCH ×3 (07:49→19:35)
[2019-10-27] MEDS: Furosemide 40 MG TAB PO SCH ×2 (07:49→14:06)
[2019-10-27] MEDS: Thiamine 100 MG TAB PO SCH (07:49)
[2019-10-27] MEDS: Folic Acid 1 MG TAB PO SCH (07:49)
[2019-10-27] MEDS: Spironolactone 100 MG TAB PO SCH ×2 (07:49→17:24)
[2019-10-27] MEDS: Cyanocobalamin (Vitamin B-12) 1,000 MCG TAB PO SCH (07:49)
[2019-10-27] MEDS: K-Phos Neutral 250 MG TAB PO SCH ×2 (07:50→12:14)
[2019-10-27] MEDS ORDERED: Magnesium Sulfate 4 GM in Sodium Chloride 0.9% 250 ML 250 ML IVPB SCH (10:00)
--- NOTE | 2019-10-27 15:26 | PDOC.HOSPP ---
- Subjective Encounter Date: 10/27/19 Encounter Time: 15:00 Subjective: Patient seen and examined for Hepatitis. No new fever or abd pain. Parracentesis site still draining clear fluid. No new complaints. No overnight events - Objective Vital Signs & Weight: Vital Signs (12 hours) Temp Pulse Resp BP Pulse Ox 10/27/19 08:00 95 10/27/19 07:30 98.3 F 104 H 18 91/62 95 Weight Weight 157 lb 11.2 oz I&O: 10/26/19 10/27/19 10/28/19 06:59 06:59 06:59 Intake Total 1500 1250 Output Total 100 2500 Balance 1400 -1250 Result Diagrams: 10/27/19 06:07 10/27/19 06:07 Additional Labs: Laboratory Tests 10/23/19 10/24/19 10/24/19 17:59 06:42 06:42 Magnesium Total Bilirubin IgG Total 1256.00 DEBRA Screen Negative Smooth Muscle Ab Titer Hep Bs Antigen Non-Reactive 10/24/19 10/27/19 06:42 06:07 Magnesium 1.4 L Total Bilirubin 8.5 H IgG Total DEBRA Screen Smooth Muscle Ab Titer 6 Hep Bs Antigen Hospitalist ROS - Review of Systems Respiratory: denies: cough, dry, shortness of breath, hemoptysis, SOB with excertion, pleuritic pain, sputum, wheezing, other Cardiovascular: denies: chest pain, palpitations, orthopnea, paroxysmal noc. dyspnea, edema, light headedness, other - Medication Medications: Active Medications Generic Name Dose Route Start Last Admin Trade Name Freq PRN Reason Stop Dose Admin Cyanocobalamin 1,000 mcg 10/24/19 09:00 10/27/19 07:49 Vitamin B-12 PO 1,000 mcg DAILY LISA Administration Folic Acid 1 mg 10/24/19 09:00 10/27/19 07:49 Folvite PO 1 mg DAILY LISA Administration Furosemide 40 mg 10/24/19 09:00 10/27/19 14:06 Lasix PO 40 mg 0900,1400 LISA Administration Multivitamins 1 tab 10/24/19 09:00 10/27/19 07:49 Theragran PO 1 tab DAILY LISA Administration Phosphorus 500 mg 10/24/19 08:00 10/27/19 12:14 Kphos Neutral PO 500 mg TID-WM LISA Administration Propranolol HCl 10 mg 10/23/19 21:00 10/27/19 07:49 Inderal PO Not Given TID LISA Spironolactone 100 mg 10/25/19 21:39 10/27/19 07:49 Aldactone PO 100 mg BID-WM LISA Administration Thiamine HCl 100 mg 10/24/19 09:00 10/27/19 07:49 Thiamine PO 100 mg DAILY LISA Administration - Exam General Appearance: NAD Heart: RRR, no gallops Respiratory: no wheezes, no ronchi Gastrointestinal: soft, no guarding, no rigidity, distended Extremities: no cyanosis Neurological: no new deficit Hosp A/P - Plan DVT proph w/SCDs 1. Anasarca/Volume overload/symptomatic ascites, s/p paracentesis. 2. Alcoholic hepatitis with possible cirrhosis. 3. Hyponatremia/hypokalemia/hypomagnesemia 4. Ongoing alcohol abuse. 5. Tobacco dependence. 6. Macrocytosis secondary to alcohol abuse. 7. Hypoalbuminemia secondary to suspected cirrhosis. PLAN: Cont low salt with 2 lit fluid restriction Cont Lasix with Aldactone Replace Magnesium AM labs Cont other meds as above
[2019-10-28 06:18] LABS: #Basophils 0.1 thou/uL (0.0-0.2); #Eosinphils 0.2 thou/uL (0.0-0.7); #Lymphocytes 3.4 thou/uL (1.20-3.40); #Monocytes 1.7 thou/uL (0.11-0.59); #Neutrophils 9.4 thou/uL (1.40-6.50); %Basophils 0.6 % (0.0-1.0); %Eosinophils 1.3 % (0.0-10.0); %Lymphocytes 22.9 % (21.0-51.0); %Monocytes 11.5 % (0.0-10.0); %Neutrophils 63.7 % (42.0-75.0); Hemoglobin 12.8 g/dL (14.0-18.0); Mean Corpuscular HGB CONC 33.1 g/dL (32.0-36.0); Mean Corpuscular Hemoglobin 34.2 pg (27.0-31.0); Mean Platelet Volume 7.4 fL (7.4-10.4); Platelet Count 175 thou/uL (130-400); RBC Distribution Width 14.1 % (11.5-14.5); Red Blood Cell (RBC) Count 3.75 mill/uL (4.70-6.10); White Blood Cell (WBC) Count 14.8 thou/uL (4.8-10.8)
[2019-10-28 06:28] LABS: ALT (SGPT) 39 U/L (8-55); AST (SGOT) 92 U/L (5-34); Albumin 2.6 g/dL (3.5-5.0); Alkaline Phosphatase 266 U/L (40-110); Anion Gap 9 mmol/L (10-20); BUN (Urea Nitrogen) 8 mg/dL (8.9-20.6); Bilirubin, Total 9.6 mg/dL (0.2-1.2); Calc. Creatinine Clearance 128 mL/min (70-130); Calcium 8.1 mg/dL (7.8-10.44); Carbon Dioxide 34 mmol/L (22-29); Chloride 92 mmol/L (98-107); Estimated GFR-MDRD Greater than 90; Globulin 2.7 g/dL (2.4-3.5); Glucose 88 mg/dL (70-105); Magnesium 1.6 mg/dL (1.6-2.6); Potassium 3.4 mmol/L (3.5-5.1); Protein, Total 5.3 g/dL (6.0-8.3); Sodium 132 mmol/L (136-145)
[2019-10-28] MEDS: Spironolactone 100 MG TAB PO SCH (08:24)
[2019-10-28] MEDS: Multivit, Therapeutic 1 TAB PO SCH (08:24)
[2019-10-28] MEDS: Folic Acid 1 MG TAB PO SCH (08:24)
[2019-10-28] MEDS: Propranolol 10 MG TAB PO SCH ×3 (08:24→20:43)
[2019-10-28] MEDS: Thiamine 100 MG TAB PO SCH (08:25)
[2019-10-28] MEDS: Furosemide 40 MG TAB PO SCH (08:25)
[2019-10-28] MEDS: Cyanocobalamin (Vitamin B-12) 1,000 MCG TAB PO SCH (08:25)
[2019-10-28] MEDS ORDERED: Magnesium Sulfate 4 GM in Sodium Chloride 0.9% 250 ML 250 ML IVPB SCH (11:00)
--- NOTE | 2019-10-28 14:23 | PRG ---
DATE OF SERVICE: 10/27/2019 SUBJECTIVE: Mr. East notes that the swelling in his legs has really dropped off quite a bit today. He actually peed quite a bit last night and this morning. He still has some drainage at the ostomy bag that has been placed over the paracentesis site in the right lower abdomen. No confusion. Eating well, ambulating. OBJECTIVE: VITAL SIGNS: Pulse 100, temperature 98, blood pressure 91/62. The patient not weighed today. In's and out's 1250, 2500, negative 1250. Drainage from the bag is about 300 mL a day. ABDOMEN: He has shifting dullness, slight fluid wave, he is mildly icteric. Abdomen is nontender. EXTREMITIES: No clubbing or cyanosis. Edema is completely resolved from his legs. LABORATORY DATA: White count 14, hemoglobin 13, MCV 104, platelet count 157. BUN and creatinine are 6 and 0.5. Magnesium 1.5, potassium 3.9, sodium 129, bilirubin 8.5, AST 95, ALT 36, alkaline phosphatase 272, albumin 2.5. ASSESSMENT: 1. Alcoholic hepatitis, slowly improving. 2. Edema and ascites, improved. He may be losing a little bit too much fluid too fast now with his sodium coming down and his hemoglobin going up. He is becoming a little heme-concentrated. We will decrease his diuretics for tomorrow. Possibly discharge home tomorrow depending on renal function, if he has a close outpatient followup, and if not, he will need to stay for another day or two. Job ID: [id number]
--- NOTE | 2019-10-28 14:47 | PDOC.HOSPP ---
- Subjective Encounter Date: 10/28/19 Encounter Time: 14:15 Subjective: Patient seen and examined for Hepatitis. No nausea or abd pain. No new complaints. No overnight events - Objective Vital Signs & Weight: Vital Signs (12 hours) Temp Pulse Resp BP Pulse Ox 10/28/19 12:00 97.9 F 94 18 96/66 97 10/28/19 08:32 97 10/28/19 08:00 98.2 F 95 18 93/61 97 Weight Weight 159 lb 7.612 oz I&O: 10/27/19 10/28/19 10/29/19 06:59 06:59 06:59 Intake Total 1250 1100 Output Total 2500 500 Balance -1250 600 Result Diagrams: 10/28/19 05:16 10/28/19 05:16 Hospitalist ROS - Review of Systems Respiratory: denies: cough, dry, shortness of breath, hemoptysis, SOB with excertion, pleuritic pain, sputum, wheezing, other Cardiovascular: denies: chest pain, palpitations, orthopnea, paroxysmal noc. dyspnea, edema, light headedness, other - Medication Medications: Active Medications Generic Name Dose Route Start Last Admin Trade Name Freq PRN Reason Stop Dose Admin Cyanocobalamin 1,000 mcg 10/24/19 09:00 10/28/19 08:25 Vitamin B-12 PO 1,000 mcg DAILY LISA Administration Folic Acid 1 mg 10/24/19 09:00 10/28/19 08:24 Folvite PO 1 mg DAILY LISA Administration Multivitamins 1 tab 10/24/19 09:00 10/28/19 08:24 Theragran PO 1 tab DAILY LISA Administration Propranolol HCl 10 mg 10/23/19 21:00 10/28/19 14:08 Inderal PO Not Given TID LISA Thiamine HCl 100 mg 10/24/19 09:00 10/28/19 08:25 Thiamine PO 100 mg DAILY LISA Administration - Exam General Appearance: NAD Eye: scleral icterus Neck: supple, no JVD Heart: RRR, no gallops Respiratory: no wheezes, no ronchi Gastrointestinal: non-tender, no guarding, no rigidity Extremities: no cyanosis, no clubbing Neurological: no new deficit Hosp A/P - Plan DVT proph w/SCDs 1. Anasarca/Volume overload/symptomatic ascites, s/p paracentesis. 2. Alcoholic hepatitis with possible cirrhosis. 3. Hyponatremia/hypokalemia/hypomagnesemia 4. Ongoing alcohol abuse. 5. Tobacco dependence. 6. Macrocytosis secondary to alcohol abuse. 7. Hypoalbuminemia secondary to suspected cirrhosis. PLAN: Replace Magnesium Cont low salt with 2 lit fluid restriction Cont Lasix with Aldactone - dose reduced Replace Magnesium AM labs Cont other meds as above DC in 1-2 days per GI
--- NOTE | 2019-10-28 17:18 | PRG ---
DATE OF SERVICE: 10/28/2019 SUBJECTIVE: Mr. East notes that he has had no further drainage from his puncture site for his paracentesis. OBJECTIVE: VITAL SIGNS: Blood pressure in mid 90s/60s, temperature 97.7. Weight 159. HEENT: He is icteric. LUNGS: Clear. ABDOMEN: Soft. There is a fluid wave. EXTREMITIES: Reveal no edema. LABORATORY DATA: White count 14.8, hemoglobin 12.8, platelet count 175. Sodium 132, potassium 3.4, BUN and creatinine are 8 and 0.72, bilirubin is 9.6, AST and ALT 92 and 39, alkaline phosphatase 266, protein 5.3, albumin 2.6. ASSESSMENT AND PLAN: 1. Alcoholic hepatitis, slowly improving. He is eating well, having good bowel movements. No fever. No signs of sepsis. 2. Ascites secondary to alcoholic liver disease, no SBP, improving. Management of diuretics with slight increase in BUN and creatinine today. We are going to decrease it back to 40 of Lasix daily and 100 of Aldactone daily. He had that this morning, so hold his afternoon dose. Continue tomorrow. Hopefully, he can go home tomorrow. Low-salt diet and blood diuretics with close followup in the office. Job ID: [id number]
[2019-10-29] MEDS ORDERED: Furosemide 40 MG TAB PO SCH (07:30)
[2019-10-29] MEDS ORDERED: Spironolactone 100 MG TAB PO SCH (08:00)
[2019-10-29] MEDS: Thiamine 100 MG TAB PO SCH (08:11)
[2019-10-29] MEDS: Propranolol 10 MG TAB PO SCH (08:11)
[2019-10-29] MEDS: Folic Acid 1 MG TAB PO SCH (08:11)
[2019-10-29] MEDS: Multivit, Therapeutic 1 TAB PO SCH (08:11)
[2019-10-29] MEDS: Cyanocobalamin (Vitamin B-12) 1,000 MCG TAB PO SCH (08:12)
[2019-10-29 12:38] VITALS: BP 101/70; TEMP 98
--- NOTE | 2019-10-29 14:09 | DIS ---
DATE OF ADMISSION: 10/23/2019 DATE OF DISCHARGE: 10/29/2019 He has no PCP. He is being discharged home. FINAL DIAGNOSES: 1. Anasarca. 2. Alcoholic hepatitis. 3. Cirrhosis of the liver. 4. Alcohol abuse. 5. Hypokalemia, hyponatremia, hypomagnesemia, hypoalbuminemia. DISCHARGE MEDICATIONS: 1. Folic acid 1 mg a day. 2. Lasix 40 mg a day.. 4. Aldactone 100 mg a day. 5. Thiamine 100 mg a day. CODE STATUS: Full. PENDING AT TIME OF DISCHARGE: Nothing. DIET: Fluid restriction 1500 mL during the hospital. HOSPITAL COURSE: He was admitted through the emergency room, complaints at that time were abdominal distention and pain. He had a history of heavy alcohol use. His initial laboratories were impressive. White count 20.0, MCV 104, hemoglobin 14.3, white count [id number], platelet count was normal at 244. INR was minimally elevated at 1.3. His bilirubin was 9.5, AST was 79, ALT 30, alkaline phosphatase 253. Sodium 132, potassium 2.6, BUN and creatinine low. He was seen in consultation by Dr. Rosalio Ibarra, Gastroenterology. The patient was placed on vitamins, Aldactone, diuresis with Lasix also, treatment with Inderal. On 10/22, he had a paracentesis. The fluid showed very few cells, hazy yellow. Body fluid culture and blood cultures were negative during his hospital stay. His weight is decreased from 189 pounds to 147 pounds 14 ounces. He is currently still jaundiced. No significant nausea, abdominal pain. He does have hepatomegaly. He does have clear jaundice of his eyes. He is being discharged for followup in 3 to 5 days by [facility]. Prescriptions have been written. He has been cautioned about alcohol intake, etc. Job ID: [id number] [facility]
--- NOTE | 2019-10-29 15:16 | PRG ---
DATE OF SERVICE: 10/29/2019 SUBJECTIVE: Mr. East is doing better. He is having no leaking from his paracentesis site. He has no peripheral edema. OBJECTIVE: VITAL SIGNS: Temperature 98, pulse is 93 to 99, blood pressure 101/70. ABDOMEN: Soft and nontender. HEENT: He is mildly icteric. LABORATORY DATA: Today, none. ASSESSMENT: 1. Alcoholic hepatitis, improving. 2. Edema, improving. RECOMMENDATIONS: Agree that he can go home today with multivitamin, thiamine, and folate, alcohol abstinence, Aldactone 100 mg once a day, and Lasix 40 mg once a day. He is prescribed to be on a low-salt diet and high-protein diet. He has had counseling with Dietary. Recommended he follow up back in our office with Dr. Ibarra in 1 weeks, to have his labs rechecked. Job ID: [id number]
--- NOTE | 2019-10-31 06:00 | PQF ---
Cooper Arredondo, TAZLINA Jacek MENDES [id number] CLINICAL DOCUMENTATION CLARIFICATION FORM: POST DISCHARGE Addendum to original discharge summary date: ____ Late entry note date: __ DATE:10/31/2019 ATTN: Dr Fuentes , [place] Please exercise your independent, professional judgment in responding to the clarification form. Clinical indicators are provided on the bottom of this form for your review Please check appropriate box(s) to clarify if the following diagnosis has been ruled in or ruled out: Sepsis [ ] Ruled in diagnosis [ ] Continue to treat [ ] Resolved [ ] Ruled out diagnosis [ ] Cannot rule out diagnosis [ ] Other diagnosis [ ] Unable to determine For continuity of documentation, please document condition throughout progress notes and discharge summary. Thank You. CLINICAL INDICATORS - SIGNS / SYMPTOMS / LABS Laboratory 10/22- WBC 20.0, Plt count 244, Neutrophils 82, Band 5, Lactic acid 1.8 Blood culture 10/22 No growth in 5 days Vital signs 10/22 BP 106/83, Pulse 121, Resp 22, Temp 98.7 ED notes p3 10/22 Pt reports jaundice and abdominal swelling x 1.5 weeks ED notes o10 10/22 Sepsis, hyperbilirubinemia, new onset cirrhosis H&P p1 10/22 Dr South Over the last 2-3 weeks, the pt noticed gradual worsening abdominal distention along with pain H&P p3 10/22 Dr South Volume overload/symptomatic ascites s/p paracentesis PN p1 10/27 Dr William Ascites secondary to alcoholic liver disease, no SBP RISK FACTORS H&P p1 10/22 Chronic alcohol abuse H&P p1 10/22 Smoker H&P p3 10/22 Cirrhosis Consult p2 10/22 Acute alcoholic hepatitis TREATMENTS MAR 10/22 IV Vancomycin 1 gm MAR 10/22 IVF NS 1L JUN 28 IV Cefepime 2 gm Blood culture 10/22 ordered Paracentesis 10/22 Ordered Abdomen/Pelvis CT 10/22 ordered (This form is maintained as a part of the permanent medical record) 2014 [employer]. All Rights Reserved [email or web address]
== END 2019-10-29 13:13 | disposition home or self-care (01) | DRG 433 ==
LOC: ERS 11:14 → T4-B 15:30
PROVIDERS: ADMIT Internal Medicine; ATTEND Internal Medicine
PROC: 0W9G3ZZ Drainage of Peritoneal Cavity, Percutaneous Approach (ICD-10-PCS; principal; 2019-10-23)
DX: K70.11 Alcoholic hepatitis with ascites (principal); E87.1 Hypo-osmolality and hyponatremia; F10.10 Alcohol abuse, uncomplicated; K70.31 Alcoholic cirrhosis of liver with ascites; E87.6 Hypokalemia; E83.42 Hypomagnesemia; E88.09 Other disorders of plasma-protein metabolism, not elsewhere classified; D75.89 Other specified diseases of blood and blood-forming organs; F17.210 Nicotine dependence, cigarettes, uncomplicated; E87.70 Fluid overload, unspecified
CPT/HCPCS: 36415; 49082; 51701; 71045; 74178; 80048; 80053; 80076; 80306; 80307; 81003; 81015; 82140; 82390; 82550; 82728; 83516; 83540; 83550; 83605; 83690; 83735; 83880; 84100; 84443; 84484; 85025; 85060; 85610; 85730; 86038; 86140; 86225; 86803; 87040; 87070; 87205; 87340; 89051; 93005; 96365; 96367; J0692; J3370; J3430; J3475; J3490; J7050; P9047; Q9967